=== PATIENT | female | born 1960 | race Caucasian/White ===

== ENCOUNTER 2018-01-19 11:55 | Emergency (ER) | payer BC ==
[2018-01-19 12:01] VITALS: BP 127/77; PULSE 68; RESP 18; TEMP 98
--- NOTE | 2018-01-19 12:24 | ED ---
Wound/Laceration HPI - General Chief Complaint: Wound/Laceration Stated Complaint: Wound, Poss Infection Time Seen by Provider: 01/19/18 12:03 Source: patient, RN notes reviewed Mode of arrival: ambulatory Limitations: no limitations - History of Present Illness Initial Comments: This is a 57-year-old female who presents to the emergency department with request for wound culture. Patient states that for the past 3 months she has had wounds on her bilateral thighs and buttocks. She states that she has been followed by , infectious disease doctor. She states that she is currently on Bactrim. She states that she went in for a wound culture this Wednesday but they were unable to collect a good sample as the wound was only draining serous fluid. He told patient to return to the office if her wound started draining pus. Patient states that the wound on her right buttock began draining today and when she called the office, was told that he is out of the office today. They recommended the patient present to the emergency department to obtain a wound culture. Patient denies any fevers or chills, chest pain or shortness of breath, abdominal pain, nausea or vomiting. - Related Data Home Medications Medication Instructions Recorded Confirmed Aspirin 81 mg PO HS 07/09/14 07/09/14 Butalb/Acetaminophen/Caffeine 1 - 2 each PO Q4H PRN 07/09/14 07/09/14 [Fioricet 50-325-40] DULoxetine HCL [Cymbalta] 60 mg PO HS 07/09/14 07/11/14 Dicyclomine [Bentyl] 10 mg PO TID 07/09/14 07/11/14 Metoprolol Tartrate [Lopressor] 12.5 mg PO HS 07/09/14 07/09/14 Pantoprazole Sodium 40 mg PO DAILY 07/09/14 07/09/14 Polyethylene Glycol 3350 [Miralax] 17 gm PO DAILY 07/09/14 07/11/14 Pravastatin Sodium [Pravachol] 20 mg PO HS 07/09/14 07/11/14 Ranitidine HCl 150 mg PO HS 07/09/14 07/11/14 Sucralfate [Carafate] 1 gm PO BID 07/09/14 07/11/14 Temazepam [Restoril] 30 mg PO HS PRN 07/09/14 07/11/14 Topiramate [Topamax] 50 mg PO QAM 07/09/14 07/09/14 Topiramate [Topamax] 100 mg PO HS 07/09/14 07/11/14 Triamcinolone Acetonide [Nasacort] 10.8 ml NS BID 07/09/14 07/11/14 oxyCODONE-APAP 10-325MG [Percocet 1 each PO Q6HR PRN 07/09/14 07/09/14 10-325] Allergies Allergy/AdvReac Type Severity Reaction Status Date / Time levofloxacin [From Levaquin] Allergy Anaphylaxis Verified 01/19/18 12:01 Exzubvm-Cgb-Nnl Reductase AdvReac joint/muscle Verified 01/19/18 12:01 Inhibitor pain Review of Systems ROS Statement: Those systems with pertinent positive or pertinent negative responses have been documented in the HPI. ROS Other: All systems not noted in ROS Statement are negative. Past Medical History Past Medical History: GERD/Reflux, Hyperlipidemia, Hypertension, Neurologic Disorder Additional Past Medical History / Comment(s): MIGRAINES History of Any Multi-Drug Resistant Organisms: None Reported Past Surgical History: Back Surgery, Section, Cholecystectomy, Heart Catheterization, Heart Catheterization With Stent, Joint Replacement, Tonsillectomy, Tubal Ligation Additional Past Surgical History / Comment(s): Neck surgery. Rt rotator cuff repair. colonoscopy. EGD. SINUS SURGERY X3 Past Anesthesia/Blood Transfusion Reactions: No Reported Reaction Date of Last Stent Placement:: 2010 Past Psychological History: No Psychological Hx Reported Smoking Status: Former smoker Past Alcohol Use History: None Reported Past Drug Use History: None Reported - Past Family History Father Family Medical History: Cancer General Exam - General Exam Comments Initial Comments: General: Awake and alert, well-developed; in no apparent distress. HEENT: Head atraumatic, normocephalic. Pupils are equal, round and reactive to light. Extraocular movements intact. Oropharynx moist without erythema or exudate. Neck: Supple. Normal ROM. Cardiovascular: Regular rate and rhythm. No murmurs, rubs or gallops. Chest symmetrical. Respiratory: Lungs clear to auscultation bilaterally. No wheezes, rales or rhonchi. Normal respiratory effort with no use of accessory muscles. Musculoskeletal: Normal ROM, no tenderness bilateral upper and lower extremities. Ambulating normally. Skin: [place], warm and dry. Tender, erythematous lesion with pus drainage right subgluteal fold. Neurological: Alert and oriented x3. CN II-XII grossly intact. Speech is fluent and answers are appropriate. No focal neuro deficits. Psychiatric: Normal mood and affect. No overt signs of depression or anxiety noted. Limitations: no limitations Course Vital Signs 01/19/18 11:57 Temperature 98.0 F Pulse Rate 68 Respiratory 18 Rate Blood Pressure 127/77 O2 Sat by Pulse 98 Oximetry Medical Decision Making - Medical Decision Making This is a 57-year-old female who presents to the emergency department with request for wound culture. Patient has a draining lesion to her right subgluteal fold. This has been being monitored by Dr. Ramirez, infectious disease. He has been trying to obtain a pus sample however the lesion has only been draining serous fluid. Lesion began draining pus today and Dr. Ramirez is not in the office. Patient presented to the emergency department for wound culture. She is already taking Bactrim. Patient denies any fevers. Vital signs are stable and she is in no acute distress. She will be discharged home at this time. Disposition Clinical Impression: Abscess Disposition: HOME SELF-CARE Condition: Good Instructions: Abscess (ED) Additional Instructions: Please follow-up with Dr. Ramirez, infectious disease. Please follow up with primary care provider within 1-2 days. Return to emergency department if symptoms should worsen or any concerns arise. Is patient prescribed a controlled substance at d/c from ED?: No Referrals: Froy Cabrera MD [Primary Care Provider] - 1-2 days Time of Disposition: 12:16
== END 2018-01-19 12:33 | disposition home or self-care (01) ==
LOC: EC 11:55
DX: L02.31 Cutaneous abscess of buttock (principal); K21.9 Gastro-esophageal reflux disease without esophagitis; E78.5 Hyperlipidemia, unspecified; I10 Essential (primary) hypertension; Z87.891 Personal history of nicotine dependence; Z95.5 Presence of coronary angioplasty implant and graft; Z98.51 Tubal ligation status; Z98.890 Other specified postprocedural states; Z79.82 Long term (current) use of aspirin; Z79.899 Other long term (current) drug therapy; Z88.1 Allergy status to other antibiotic agents; Z88.8 Allergy status to other drugs, medicaments and biological substances
CPT/HCPCS: 87070; 87077; 87186; 87205; 99282

== ENCOUNTER 2020-02-14 08:12 | Day surgery (SDC) | payer BC ==
[2020-02-12 12:18] VITALS: BMI 20.5
[~2020-02-14 08:12] MED LIST: LACTATED RINGERS 1,000 ML IV SCH
[2020-02-14] MEDS ORDERED: LIDOCAINE 1% INJ 10MG/ML (20 ML MDV) ONE (09:22)
[2020-02-14] MEDS ORDERED: PROPOFOL 10 MG/ML 20 ML VIAL IV ONE (09:22)
[2020-02-14] MEDS ORDERED: MIDAZOLAM 2 MG/2 ML VIAL ONE (09:22)
[2020-02-14] MEDS ORDERED: fentaNYL (PF) 50 MCG/ML 2 ML AMP ONE (09:22)
--- NOTE | 2020-02-14 09:44 | P.PCN ---
Date of Procedure: 02/14/20 Procedure(s) Performed: Brief history: Patient is a pleasant 59-year-old white female scheduled for an elective upper endoscopy as well as colonoscopy as a part of evaluation of long-standing history of GERD and screening for colorectal neoplasia. Procedure performed: Esophagogastroduodenoscopy with biopsy Colonoscopy Preoperative diagnosis: GERD long-standing history of GERD Screening for colon cancer Anesthesia: MAC Procedure: After informed consent was obtained from the patient was brought into the endoscopy unit and IV sedation was administered by anesthesia under continuous monitoring. Initially upper endoscopy was done. The Olympus GF 160 video endoscope was inserted inserted into the mouth and esophagus intubated without any difficulty and was gradually advanced into the stomach and duodenum and carefully examined. The bulb and second part of the duodenum appeared normal. The scope was then withdrawn into the stomach adequately insufflated with air and upon careful examination the antrum had mild antral gastritis and a small 5 mm antral ulcer that was biopsied. The body, cardia and fundus appeared normal. The scope was then withdrawn into the esophagus. The GE junction was located at 40 cm to the incisors. It appeared regular with no erythema erosions or ulcerations. Rest of the esophagus appeared normal. Patient tolerated the procedure well. At this time the patient continued to remain sedation. Initial digital rectal examination was normal. Olympus CF 160 video colonoscope was then inserted into the rectum and gradually advanced to the cecum without any difficulty. Careful examination was performed as the scope was gradually being withdrawn. The prep was fair. In some areas there was some solid stool identified.. The cecum, ascending colon, transverse colon, descending colon, sigmoid colon and rectum appeared normal. Scattered sigmoid diverticula seen. Retroflexion was performed in the rectum and small internal hemorrhoids were noted. Patient tolerated the procedure well. Impression: 1. Upper endoscopy revealed a 5 mm antral ulcer and antral gastritis 2. Colonoscopy revealed scattered sigmoid diverticulosis and small internal hemorrhoids. Recommendations: Findings of this examination were discussed with the patient as well as her family. She was advised to follow with the biopsy results. She will continue with Protonix 40 mg daily. Avoid NSAIDs. She can have a repeat screening colonoscopy in 10 years.
[2020-02-14 09:50] VITALS: RESP 16
[2020-02-14 10:06] VITALS: BP 136/78; PULSE 83
== END 2020-02-14 10:45 | disposition home or self-care (01) ==
LOC: ORWHC2ENDO 08:12
PROVIDERS: ATTEND Internal Medicine Gastroenterology
DX: Z12.11 Encounter for screening for malignant neoplasm of colon (principal); K25.9 Gastric ulcer, unspecified as acute or chronic, without hemorrhage or perforation; K21.9 Gastro-esophageal reflux disease without esophagitis; K29.50 Unspecified chronic gastritis without bleeding; K57.30 Diverticulosis of large intestine without perforation or abscess without bleeding; K64.8 Other hemorrhoids; I10 Essential (primary) hypertension; Z79.02 Long term (current) use of antithrombotics/antiplatelets; Z79.891 Long term (current) use of opiate analgesic; Z79.899 Other long term (current) drug therapy; Z95.5 Presence of coronary angioplasty implant and graft; Z90.49 Acquired absence of other specified parts of digestive tract; Z98.890 Other specified postprocedural states; Z97.2 Presence of dental prosthetic device (complete) (partial); Z88.1 Allergy status to other antibiotic agents; Z88.8 Allergy status to other drugs, medicaments and biological substances
CPT/HCPCS: 88305; 43239; J2250; J2001; J3010; J2704; G0121

== ENCOUNTER 2021-09-02 06:11 | Day surgery (SDC) | payer BC ==
[2021-09-01 09:30] VITALS: BMI 20.2
[~2021-09-02 06:11] MED LIST changes: +LIDOCAINE 1% (10MG/ML) FOR IV START INTRADERMA PRN
[2021-09-02 06:33] VITALS: TEMP 98.5
[2021-09-02] MEDS ORDERED: PROPOFOL 10 MG/ML 20 ML VIAL IV ONE (07:02)
[2021-09-02] MEDS ORDERED: LIDOCAINE 1% INJ 10MG/ML (20 ML MDV) ONE (07:02)
--- NOTE | 2021-09-02 07:14 | P.PCN ---
Date of Procedure: 09/02/21 Procedure(s) Performed: BRIEF HISTORY: Patient is a 61-year-old, pleasant, white female scheduled for an upper endoscopy as a part of evaluation of severe epigastric pain for the last 2 months duration. She has long-standing history of GERD, was on Protonix 40 mg daily but recently was increased to 20 mg twice daily and still remains symptomatic and scheduled for an upper endoscopy to evaluate further. Last EGD in January 2020 revealed a gastric antral ulcer.. PROCEDURE PERFORMED: Esophagogastroduodenoscopy with biopsy. PREOPERATIVE DIAGNOSIS: . Epigastric pain and history of GERD. IV sedation per anesthesia. PROCEDURE: After informed consent was obtained, the patient was brought into the endoscopy unit. IV sedation was administered by Anesthesia under continuous monitoring. Initially the Olympus GIF-140 video endoscope was inserted into the mouth. Esophagus intubated without any difficulty. It was gradually advanced into the stomach and duodenum and carefully examined. The bulb and the second part of the duodenum appeared normal. The scope at this time was withdrawn to the stomach, adequately insufflated with air, and upon careful examination, mucosa of the antrum, had linear areas of erythema consistent with gastritis and biopsies were done from this area. The body, cardia and the fundus appeared normal. The scope was then withdrawn into the esophagus. The GE junction was located at 39 cm from the incisors. A very small sliding type hiatal hernia noted. The rest of the esophagus appeared normal. There were no erosions or ulcerations seen, biopsies were done from the distal and the patient tolerated the procedure well. IMPRESSION: 1. Small sliding Hiatal hernia with no evidence of esophagitis or Lomas's esophagus. 2. Linear areas of erythema in the antrum consistent with mild antral gastritis. RECOMMENDATIONS: The findings of this examination were discussed with the patient as well as a family. She was advised to follow with the biopsy results. Continue with Protonix 40 mg twice daily as well as Carafate as needed and follow up in office in 2 months.
[2021-09-02 07:35] VITALS: BP 110/76; PULSE 63; RESP 16
== END 2021-09-02 07:58 | disposition home or self-care (01) ==
LOC: ORWHC2ENDO 06:11
PROVIDERS: ATTEND Internal Medicine Gastroenterology
DX: K29.50 Unspecified chronic gastritis without bleeding (principal); K20.0 Eosinophilic esophagitis; K21.9 Gastro-esophageal reflux disease without esophagitis; I25.10 Atherosclerotic heart disease of native coronary artery without angina pectoris; I10 Essential (primary) hypertension; E78.5 Hyperlipidemia, unspecified; Z95.5 Presence of coronary angioplasty implant and graft; F32.A Depression, unspecified; G43.909 Migraine, unspecified, not intractable, without status migrainosus; F17.210 Nicotine dependence, cigarettes, uncomplicated; Z98.891 History of uterine scar from previous surgery; Z98.890 Other specified postprocedural states; Z97.2 Presence of dental prosthetic device (complete) (partial); Z79.891 Long term (current) use of opiate analgesic; Z79.02 Long term (current) use of antithrombotics/antiplatelets; Z79.82 Long term (current) use of aspirin; Z79.899 Other long term (current) drug therapy; Z88.1 Allergy status to other antibiotic agents; Z88.7 Allergy status to serum and vaccine
CPT/HCPCS: 88305; 43239; J2001; J2704

== ENCOUNTER → 2024-03-25 | Outpatient (CLI) | payer BC ==
[2024-03-26 08:10] LABS: ALT 17 U/L (8-44); AST 18 U/L (13-35); Albumin 4.3 g/dL (3.8-4.9); Albumin/Globulin Ratio 1.79 Ratio (1.60-3.17); Alkaline Phosphatase 103 U/L (41-126); Bilirubin, Conjugated <0.20 mg/dL (0.20-0.40); Globulin 2.4 g/dL (1.6-3.3); Total Bilirubin <0.2 mg/dL (0.3-1.2); Total Protein 6.7 g/dL (6.2-8.2)
[2024-03-29 16:27] LABS: Chol/HDL Ratio 2.91 Ratio; LDL Cholesterol,Calculated 88.3 mg/dL (0.0-131.0)
== END | disposition home or self-care (01) ==
LOC: LABWHC1 09:31
PROVIDERS: ATTEND Internal Medicine Interventional Cardiology
DX: E78.2 Mixed hyperlipidemia (principal)
CPT/HCPCS: 36415; 80061; 80076